=== PATIENT | female | born 1955 | race Two or more races ===

== ENCOUNTER 2021-10-23 08:36 | Outpatient (CLI) | payer OTHER | END 2021-10-23 08:37 | disposition home or self-care (01) | LOC: LAB 08:36 | PROVIDERS: ATTEND Internal Medicine Cardiovascular Disease | DX: I10 Essential (primary) hypertension (principal); E11.9 Type 2 diabetes mellitus without complications; E03.9 Hypothyroidism, unspecified; E78.2 Mixed hyperlipidemia; D64.0 Hereditary sideroblastic anemia; N80.9 Endometriosis, unspecified; R85.9 Unspecified abnormal finding in specimens from digestive organs and abdominal cavity; Z12.11 Encounter for screening for malignant neoplasm of colon ==

== ENCOUNTER 2021-10-23 08:40 | Outpatient (CLI) | payer OTHER | END 2021-10-23 08:44 | disposition home or self-care (01) | LOC: RAD | PROVIDERS: ATTEND Internal Medicine Cardiovascular Disease | DX: Z12.31 Encounter for screening mammogram for malignant neoplasm of breast (principal); N63.11 Unspecified lump in the right breast, upper outer quadrant; J44.9 Chronic obstructive pulmonary disease, unspecified; R10.9 Unspecified abdominal pain ==

== ENCOUNTER 2021-10-23 11:03 | Outpatient (CLI) | payer OTHER | END 2021-10-23 11:04 | disposition home or self-care (01) | LOC: NUCLEAR 11:03 | PROVIDERS: ATTEND Internal Medicine Cardiovascular Disease | DX: M81.0 Age-related osteoporosis without current pathological fracture (principal); E55.9 Vitamin D deficiency, unspecified; Z88.0 Allergy status to penicillin; Z88.8 Allergy status to other drugs, medicaments and biological substances ==

== ENCOUNTER 2022-07-23 09:29 | Inpatient (IN) | payer OTHER ==
[~2022-07-23] VITALS: Ht 160 cm; Wt 52.2 kg
[2022-07-23] MEDS ORDERED: TENORMIN25 MG PO (10:31)
[2022-07-26] MEDS ORDERED: ANASTROZOLE1 MG (08:05)
== END 2022-07-26 12:15 | disposition home or self-care (01) | DRG 581 ==
LOC: O/R 07-25 06:43 → SURH 07-25 06:43 → SURG 07-25 09:45 → SURH 07-25 17:45
PROVIDERS: ADMIT Specialist; ATTEND Specialist
PROC: 0HBT0ZZ Excision of Right Breast, Open Approach (ICD-10-PCS; 2022-07-25)
PROC: 07B50ZZ Excision of Right Axillary Lymphatic, Open Approach (ICD-10-PCS; principal; 2022-07-25 11:30)
DX: C50.211 Malignant neoplasm of upper-inner quadrant of right female breast (principal); Z20.822 Contact with and (suspected) exposure to COVID-19

== ENCOUNTER 2022-09-16 08:10 | Outpatient (CLI) | payer OTHER ==
[~2022-09-16 08:10] MED LIST: ANASTROZOLE1 MG; TENORMIN25 MG PO
== END 2022-09-16 08:13 | disposition home or self-care (01) ==
LOC: SONOGRAMA 08:10
PROVIDERS: ATTEND Pathology Anatomic Pathology & Clinical Pathology
DX: D34 Benign neoplasm of thyroid gland (principal); E04.9 Nontoxic goiter, unspecified